=== PATIENT | female | born 1975 | race Two or more races ===

== ENCOUNTER 2021-01-01 14:17 | Emergency (ER) | payer OTHER ==
[~2021-01-01] VITALS: Ht 167.6 cm; Wt 101.6 kg
[2021-01-01] MEDS ORDERED: SYNTHROID100 MCG PO (14:29)
[2021-01-01] MEDS ORDERED: AVALIDE 300-121 EACH PO (14:29)
[2021-01-01] MEDS ORDERED: CLONAZEPAM1 MG PO (14:30)
[2021-01-01] MEDS ORDERED: CLONAZEPAM2 MG PO (14:30)
== END 2021-01-01 21:15 | disposition home or self-care (01) ==
LOC: ER 14:17
DX: K57.92 Diverticulitis of intestine, part unspecified, without perforation or abscess without bleeding (principal); R10.32 Left lower quadrant pain

== ENCOUNTER 2022-09-03 09:24 | Day surgery (SDC) | payer OTHER ==
[~2022-09-03 09:24] MED LIST: AVALIDE 300-121 EACH PO; CLONAZEPAM1 MG PO; CLONAZEPAM2 MG PO; SYNTHROID100 MCG PO
== END 2022-09-03 16:30 | disposition home or self-care (01) ==
LOC: AMB-ENDOS 09:24 → CIR.AMB 14:15 → AMB-ENDOS 16:30
PROVIDERS: ATTEND Colon & Rectal Surgery
DX: N82.3 Fistula of vagina to large intestine (principal); K57.32 Diverticulitis of large intestine without perforation or abscess without bleeding; R10.32 Left lower quadrant pain; K64.8 Other hemorrhoids; Z88.0 Allergy status to penicillin; Z88.2 Allergy status to sulfonamides; Z91.013 Allergy to seafood; Z20.822 Contact with and (suspected) exposure to COVID-19